=== PATIENT | male | born 1945 | race African-American/Black ===

== ENCOUNTER → 2018-01-10 | Outpatient (CLI) | payer MEDICARE, BC ==
[~2018-01-10] MED LIST: ASPIRIN PO; ATORVASTATIN PO; CIPRO PO; CLOPIDOGREL PO; CRESTOR PO; LISINOPRIL PO; METOPROLOL PO; OXYCODONE PO; TAMS-11 PO
== END | disposition home or self-care (01) ==
LOC: RAD 10:56
DX: I10 Essential (primary) hypertension (principal); E78.5 Hyperlipidemia, unspecified
CPT/HCPCS: 72040

== ENCOUNTER → 2018-04-05 | Outpatient (CLI) | payer MEDICARE, BC | END | disposition home or self-care (01) | LOC: RAD 10:29 | DX: M43.24 Fusion of spine, thoracic region (principal); M47.892 Other spondylosis, cervical region | CPT/HCPCS: 72052; 72070 ==